=== PATIENT | female | born 1960 | race Caucasian/White ===

== ENCOUNTER 2016-12-23 15:15 | Emergency (ER) | payer OTHER ==
[~2016-12-23] VITALS: Ht 167.6 cm; Wt 68.5 kg
[~2016-12-23 15:15] MED LIST: CLINDAMYCIN HC300 M1 PO; NASONEX0.05 MG/Ac; PROVENTIL0.09 MG/A1; TYLENOL WITH C1 EACH PO
[2016-12-23 15:30] VITALS: BP 163/85
[2016-12-23 15:48] LABS: ABSOLUTE BASOPHIL COUNT 0 /CUMM (0.0-0.2); ABSOLUTE EOSINOPHIL COUNT 0.1 /CUMM (0.0-0.7); ABSOLUTE GRANULOCYTE CT 3.5 /CUMM (1.4-6.5); ABSOLUTE LYMPH COUNT 1.8 /CUMM (1.2-3.4); ABSOLUTE MONOCYTE COUNT 0.5 /CUMM (0.10-0.60); BASOPHIL % 0.8 % (0.0-2.0); EOSINOPHIL % 1.9 % (0-5); MEAN CORPUSCULAR HGB 32.4 PG (27.0-31.0); MEAN CORPUSCULAR VOLUME 95.3 FL (81.0-99.0); MEAN PLATELET VOLUME 8.1 FL (7.4-10.4); PLATELET COUNT 284 /CUMM (130-400); RBC DISTRIBUTION WIDTH 13.1 % (11.5-14.5); RED BLOOD CELL CT 4.41 /CUMM (4.20-5.40)
--- NOTE | 2016-12-23 16:13 | RADIOLOGY REPORT ---
EXAMINATION: XR PORTABLE CHEST CLINICAL INFORMATION: Chest pain. COMPARISON: Chest x-ray 10/14/2011. TECHNIQUE: Portable AP view of the chest was obtained. FINDINGS: The lungs are well-expanded and clear without focal airspace consolidation. No pleural effusions or pneumothoraces are identified. Cardiomediastinal contours are within normal limits. Soft tissues are unremarkable. No acute osseous abnormality is identified. IMPRESSION: No acute pulmonary process.
--- NOTE | 2016-12-23 16:43 | ED CARDIAC/CP/PALPITATIONS ---
See Addendum History of Present Illness General Chief Complaint: Chest Pain Stated Complaint: PT IS HAVING CHEST PAINS Source: patient Exam Limitations: no limitations Vital Signs & Intake/Output Vital Signs & Intake/Output Vital Signs Date Time Temp Pulse Resp B/P Pulse O2 O2 Flow FiO2 Ox Delivery Rate 12/23 1530 98.1 67 16 163/85 99 Room Air ED Intake and Output 12/24 0000 12/23 1200 Intake Total Output Total Balance Patient 151 lb Weight Allergies Coded Allergies: Penicillins (RASH 02/03/16) Reconcile Medications Multivitamin (Multi-Day Vitamins) 1 EACH TABLET 1 TAB PO DAILY SUPPLEMENT ( Reported) Triage Note: PT STATES SHE HAVING AN MRI DONE AND WHEN SHE WENT TO LEAVE SHE STARTED HAVING STABBING CHEST PAIN THAT HAPPEND 9 OR 10 TIMES. PT DENIES SOB OR DIAPHORETIC. PT STATES SHE HAS BEEN GETTING NUMBNESS IN HER LEFT ARM AND SOME TINGLING IN HER LEFT CHEST. Triage Nurses Notes Reviewed? yes HPI: about 1:30pm pt started to have L side lower sharp chest pain episodes. shooting pain lasting less than 1 second. occured 10-15x over 10 min. also co mild L arm aching sensation which she thinks is due to overuse as she now asymptomatic. she had MRI of the brain, with and without iv contrast immediately prior to this chest pain starting. She has no history of chest pain, no family history, no history of hypertension, she is a nonsmoker. She has no radiating pain or symptoms, she does not feel short of breath and diaphoretic and there is no neck pain. She is asymptomatic at this time. There was no treatment thus far, symptoms resolved on its own Past History Travel History Traveled to [place] past 21 day No Medical History Any Pertinent Medical History? 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 No Review of Systems Review of Systems Constitutional: Reports: see HPI. EENTM: Reports: no symptoms. Respiratory: Reports: no symptoms. Cardiovascular: Reports: no symptoms. GI: Reports: no symptoms. Genitourinary: Reports: no symptoms. Musculoskeletal: Reports: no symptoms. Skin: Reports: no symptoms. Neurological/Psychological: Reports: see HPI. Hematologic/Endocrine: Reports: no symptoms. Immunologic/Allergic: Reports: no symptoms. All Other Systems: Reviewed and Negative Physical Exam Physical Exam Respiratory: normal breath sounds, chest non-tender, no respiratory distress Cardiovascular: regular rate/rhythm Comments: Well-developed well-nourished no apparent distress. HEENT: Atraumatic, extraocular motion intact Neck: Supple, no lymphadenopathy Back: Nontender Respiratory: No respiratory distress Extremities: No edema, full range of motion Neuro: Alert and oriented x3 Psych: Mood affect normal, normal memory normal judgment. Skin: Warm and dry, no rash on exposed skin Core Measures ACS in differential dx? Yes Severe Sepsis Present: No Septic Shock Present: No Progress Differential Diagnosis: AMI, aortic dissection, atrial fibrillation, cholecystitis, CHF/pulm edema, costochondritis, hyperkalemia, hypovolemia, hyperthyroid, hyperventilation, intracranial hemorrhage, musculoskeletal pain, myocarditis, pancreatitis, pericarditis, pneumonia, pneumothorax, PSVT, pulmonary embolism, PUD/GERD, PVCs/PACs, respiratory failure, rib fracture, sepsis, unstable angina, V-fib/V-Tach, WPW syndrome Plan of Care: Orders Procedure Date/time Status TROPONIN LEVEL 12/23 1532 Complete MAGNESIUM 12/23 1532 Complete COMPREHENSIVE METABOLIC PANEL 12/23 1532 Complete CHOLESTEROL 12/23 1532 Complete CBC WITHOUT DIFFERENTIAL 12/23 1532 Complete EKG 12/23 1517 Active Laboratory Tests 12/23/16 1541: Anion Gap 11, Estimated GFR > 60, BUN/Creatinine Ratio 28.3 H, Glucose 91, Calcium 10.7 H, Magnesium 2.0, Total Bilirubin 1.8 H, AST 49 H, ALT 41, Alkaline Phosphatase 74, Troponin I < 0.01, Total Protein 8.2, Albumin 4.7, Globulin 3.5, Albumin/Globulin Ratio 1.3, Cholesterol 151, CBC w Diff NO MAN DIFF REQ, RBC 4.41, MCV 95.3, MCH 32.4 H, RDW 13.1, MPV 8.1, Gran % 58.0, Lymphocytes % 30.7, Monocytes % 8.6, Eosinophils % 1.9, Basophils % 0.8, Absolute Granulocytes 3.5, Absolute Lymphocytes 1.8, Absolute Monocytes 0.5, Absolute Eosinophils 0.1, Absolute Basophils 0, PUBS MCHC 34.0 Diagnostic Imaging: Viewed by Me: Radiology Read. Discussed w/RAD: Radiology Read. CXR Impression: no acute abnormality Initial ED EKG: NSR, rate (70), no ST T wave changes Rhythm Strip: normal sinus rhythm Comments: Patient's testing is negative, she is asymptomatic throughout her stay here. EKG troponin chest x-ray and labs are unremarkable. I recommend she follows up with a primary care doctor symptoms continue, take Motrin or Tylenol as needed for pain, she is to return here with worsening or more concerning symptoms. Departure Departure Disposition: HOME OR SELF CARE Condition: Stable Clinical Impression Primary Impression: Chest pain of uncertain etiology Referrals: GABBY MADISON,CHINYERE Thompson (PCP/Family) Additional Instructions: Return to the ER with worsening chest pain, shortness of breath, nausea. Follow-up with your doctor if symptoms continue Departure Forms: Customer Survey General Discharge Information Critical Care Note Critical Care Note Critical Care Time: non-applicable
[2016-12-23] MEDS ORDERED: MULTI-DAY VITA1 EACH PO (17:30)
== END 2016-12-23 17:54 ==
LOC: ERH 15:15
PROVIDERS: Emergency Medicine
DX: R07.9 Chest pain, unspecified (principal)
CPT/HCPCS: 93005; 93010

== ENCOUNTER 2017-01-15 12:58 | Emergency (ER) | payer OTHER ==
[~2017-01-15] VITALS: Ht 167.6 cm; Wt 68.0 kg
[~2017-01-15 12:58] MED LIST changes: +MULTI-DAY VITA1 EACH PO
[2017-01-15 13:02] VITALS: BP 136/77
--- NOTE | 2017-01-15 13:17 | ED GENERAL ADULT ---
History of Present Illness General Chief Complaint: Low Back Pain/Injury Stated Complaint: BACK PAIN Source: patient Exam Limitations: no limitations Vital Signs & Intake/Output Vital Signs & Intake/Output Vital Signs Date Time Temp Pulse Resp B/P Pulse O2 O2 Flow FiO2 Ox Delivery Rate 01/15 1302 97.0 97 20 136/77 99 Room Air Allergies Coded Allergies: Penicillins (RASH 02/03/16) Reconcile Medications Multivitamin (Multi-Day Vitamins) 1 EACH TABLET 1 TAB PO DAILY SUPPLEMENT ( Reported) Triage Note: PT C/O RED BUMP ON BACK WHICH IS SWOLLEN WITH SLIGHT D/C X 1 WEEK Triage Nurses Notes Reviewed? yes Onset: Abrupt Duration: day(s): Timing: recent history HPI: 01/15/17 1:15 PM 56-year-old female presents to the emergency department for painful swelling to her back. The patient states that she was in her usual state of health until the past week when she developed a progressive onset of redness tenderness and swelling to her right lower middle back. No fever. She says that she has a skin lesion there since she was a child but that is chronic. The onset of the symptoms were abrupt. The duration has been 7 days. The severity is significant as her symptoms required her to come to the ED for care. She has associated pain and swelling. Past History Travel History Traveled to [place] past 21 day No Medical History Any Pertinent Medical History? 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 No Review of Systems Review of Systems Constitutional: Denies: fever. EENTM: Reports: no symptoms. Respiratory: Reports: no symptoms. Cardiovascular: Reports: no symptoms. GI: Reports: no symptoms. Genitourinary: Reports: no symptoms. Musculoskeletal: Reports: no symptoms. Skin: Reports: see HPI. Neurological/Psychological: Reports: no symptoms. Hematologic/Endocrine: Reports: no symptoms. Immunologic/Allergic: Reports: no symptoms. Physical Exam Physical Exam General Appearance: alert, awake, anxious, mild distress Head: atraumatic, normal appearance Eyes: Bilateral: normal appearance, PERRL, EOMI. Ears, Nose, Throat: normal pharynx, normal ENT inspection Neck: normal inspection, supple Respiratory: normal breath sounds, chest non-tender, no respiratory distress Cardiovascular: regular rate/rhythm Peripheral Pulses: 4+ radial (R), 4+ radial (L) Back: normal range of motion Extremities: normal inspection Neurologic/Psych: no motor/sensory deficits, awake, alert, oriented x 3, normal gait Skin: warm/dry, rash Comments: She has a 1" x 1" abscess to her right mid back, it is adjacent to punctate erythema and swelling, but the patient says is chronic. Procedure I&D of sebaceous cyst that was infected Ultrasound was used to confirm a cystic collection Consent was obtained verbally Under sterile technique and local anesthesia 5 mL of lidocaine 1% without epinephrine was injected subcuticularly A size 11 scalpel blade was used to I&D the abscess under sterile technique 10 mL of joan pus was returned There was significant thick cheeselike material Culture was sent The cavity was too bradycardic It was packed with iodoform Bacitracin and a sterile dressing was applied No complications Core Measures ACS in differential dx? No CVA/TIA Diagnosis: No Severe Sepsis Present: No Septic Shock Present: No Progress Differential Diagnoses I considered the following diagnoses in my evaluation of the patient: [Epidural abscess, abscess, cellulitis, Lyme disease, insect bite, necrotizing fasciitis] Plan of Care: FOLLOW UP IN THE ED IN 24 HOURS DOXYCYCLINE DIRECTED Initial ED EKG: none Departure Departure Disposition: HOME OR SELF CARE Condition: Stable Clinical Impression Primary Impression: Abscess Referrals: GABBY MADISON,CHINYERE Thompson (PCP/Family) Departure Forms: Customer Survey General Discharge Information Critical Care Note Critical Care Note Critical Care Time: non-applicable
[2017-01-15] MEDS ORDERED: VIBRAMYCIN100 MG PO (14:07)
== END 2017-01-15 14:17 ==
LOC: ERH 12:58
DX: L02.212 Cutaneous abscess of back [any part, except buttock and flank] (principal)
CPT/HCPCS: 87070

== ENCOUNTER 2017-01-16 21:10 | Emergency (ER) | payer OTHER ==
[~2017-01-16 21:10] MED LIST changes: +VIBRAMYCIN100 MG PO
[2017-01-16 21:16] VITALS: BP 131/99
--- NOTE | 2017-01-16 21:54 | ED ANIMAL BITE/WOUND CHECK ---
History of Present Illness General Chief Complaint: Suture Removal/Wound Recheck Stated Complaint: WOUND RECHECK Source: patient Exam Limitations: no limitations Vital Signs & Intake/Output Vital Signs & Intake/Output Vital Signs Date Time Temp Pulse Resp B/P Pulse O2 O2 Flow FiO2 Ox Delivery Rate 01/16 2116 98.5 97 18 131/99 97 Room Air Allergies Coded Allergies: Penicillins (RASH 02/03/16) Reconcile Medications Doxycycline Hyclate (Vibramycin) 100 MG CAPSULE 1 CAP PO BID ABSCESS Multivitamin (Multi-Day Vitamins) 1 EACH TABLET 1 TAB PO DAILY SUPPLEMENT ( Reported) Triage Note: PT TO TRIAGE FOR WOUND CHECK. PT WAS HERE IN ER YESTERDAY WITH ABSCESS TO BACK AND WAS TOLD TO COME BACK TODAY FOR WOUND PACKING REMOVAL. Triage Nurses Notes Reviewed? yes Onset: Abrupt Duration: day(s):, constant, continues in ED Timing: recent history Injury Environment: home No Modifying Factors: none HPI: 56-year-old female comes in for a packing change for an abscess. Denies any fever chills vomiting. Patient had a drain the other day by Dr. Miles. Denies any other associated symptoms. She'll threatening pain. Continuous. Nonradiating. Denies any other associated symptoms. (LAI DEE) Past History Travel History Traveled to [place] past 21 day No Medical History Any Pertinent Medical History? 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 No (LAI DEE) Review of Systems Review of Systems Constitutional: Reports: no symptoms. EENTM: Reports: no symptoms. Respiratory: Reports: no symptoms. Cardiovascular: Reports: no symptoms. GI: Reports: no symptoms. Genitourinary: Reports: no symptoms. Musculoskeletal: Reports: no symptoms. Skin: Reports: see HPI. Neurological/Psychological: Reports: no symptoms. Hematologic/Endocrine: Reports: no symptoms. Immunologic/Allergic: Reports: no symptoms. All Other Systems: Reviewed and Negative (LAI DEE) Physical Exam Physical Exam General Appearance: well developed/nourished, mild distress Head: atraumatic Eyes: Bilateral: normal appearance. Ears, Nose, Throat: normal ENT inspection, hearing grossly normal Neck: normal inspection Respiratory: no respiratory distress Cardiovascular: regular rate/rhythm Back: normal inspection Extremities: normal range of motion Neurologic/Psych: awake, alert, oriented x 3, normal mood/affect Skin: small amount of induration and redness, no fluctuance, no large surrounding erythema, Lymphatic: no anterior cervical gila (LAI DEE) Progress Differential Diagnosis: abscess, cellulitis, joint infection, tenosysnovitis Plan of Care: 01/16/2017 11:05:25 PM Packing removed. Abscess appears to have improved. Patient to continue hot compresses. Finish antibiotic. Return if any other concerns. (LAI DEE) Departure Departure Disposition: HOME OR SELF CARE Condition: Stable Clinical Impression Primary Impression: Encounter for wound re-check Secondary Impressions: Abscess packing removal Referrals: GABBY MADISON,CHINYERE Thompson (PCP/Family) Additional Instructions: Compresses twice a day. Do a hot sitz bath once a day. Return in 5 days for another wound check. Return if any other concerns worsening symptoms. Follow- up with a otolaryngology surgeon. Please go over all results of today's visit with your primary care doctor. Contact your primary care doctor to let them know you were here in the emergency room. There may be nonspecific findings which may not be related to your visit today here in the emergency room but may require further evaluation and chronic monitoring by your primary care doctor. If you had a laceration today the chance of foreign body always remains. You should follow-up with your primary care doctor for recheck in 3-5 days for a wound check. If you had an x-ray done there is a chance that a fracture could have been missed on initial read and you should follow-up with your primary care doctor for repeat x-rays if symptoms persist. If your blood pressure was elevated here in the emergency room please have rechecked by her primary care doctor within the next 48 hours by your primary care doctor. If you were prescribed a narcotic here in the emergency room or any type of controlled substances you're not allowed to drive while taking this medication or operate any type of heavy machinery. Narcotics can make you feel lightheaded dizziness nausea and can cause constipation. You may need to lemon picker a stool softener. Thank you for choosing [facility] emergency room. Please return to the emergency room immediately if you have any other concerns worsening of symptoms. Departure Forms: Customer Survey General Discharge Information (LAI DEE) PA/ORDER RUNNER Co-Sign Statement Statement: ED Attending supervision documentation- [] I saw and evaluated the patient. I have also reviewed all the pertinent lab results and diagnostic results. I agree with the findings and the plan of care as documented in the PA's/ORDER RUNNER's documentation. [x] I have reviewed the ED Record and agree with the PA's/ORDER RUNNER's documentation. [] Additions or exceptions (if any) to the PAs/ORDER RUNNER's note and plan are summarized below: [] (ARTUR MADISON,MICHAEL Love)
== END 2017-01-16 22:11 ==
LOC: ERH 21:10
DX: L02.212 Cutaneous abscess of back [any part, except buttock and flank] (principal)
CPT/HCPCS: 99281